=== PATIENT | female | born 1950 | race Caucasian/White ===

== ENCOUNTER 2017-06-26 09:08 | Emergency (ER) | payer OTHER ==
--- NOTE | 2017-06-26 09:46 | CPEKG ---
Heart Rate: 56 RR Interval: 1071 P-R Interval: 152 QRSD Interval: 84 QT Interval: 400 QTC Interval: 387 P Irene: 42 QRS Irene: 49 T Wave Irene: 51 EKG Severity - NORMAL ECG - EKG Impression: SINUS RHYTHM Electronically Signed By: Jeremiah Grewal 26-Jun-2017 15:22:03
[2017-06-26 11:07] VITALS: PULSE 78; RESP 18; TEMP 98.4
--- NOTE | 2017-06-26 11:09 | EDPHY ---
H & P Time Seen by Provider: 06/26/17 09:47 HPI/ROS: HPI Concerned about blood pressure. Very pleasant 66-year-old female by private vehicle with her . They are visiting from [place]. They are here for through the weekend looking at house is. They are planning on moving to the area. The patient has a history of hypertension. She is currently on valsartan HCTZ twice daily. She reports today she noticed that her blood pressure had been high in the low 200 systolic we over 90s. She reports that this has made her anxious. She denies any associated headache, chest pain, shortness of breath. No problems urinating. They are planning on going up the [place] look at some house as but not higher than 7000 ft. ROS: Constitutional: No fever, no chills. No weakness. As above. Eyes: No discharge. No changes in vision. ENT: No sore throat. No nasal congestion or rhinorrhea. Respiratory: No cough. No shortness of breath. Cardiac: No chest pain, no palpitations. Gastrointestinal: No abdominal pain, no vomiting, no diarrhea. Genitourinary: No hematuria. No dysuria or increased frequency with urination. Musculoskeletal: No back pain. No neck pain. No myalgias or arthralgias. Skin: No rashes. Neurological: No headache. No focal weakness or altered sensation. Past medical history: As above. Atrial fibrillation with ablation. She also has a history of lower back pain. She has been on a course of prednisone for a bulging disc. This course of prednisone and tomorrow. Social history: Nonsmoker. No alcohol. Here with her . Physical Exam: General Appearance: Alert, anxious. This patient is responding to questions appropriately and in full sentences. This patient appears well-hydrated and well-nourished. Eyes: Pupils equal and round no pallor or injection. No lid edema, erythema or injection. Respiratory: There are no retractions, lungs are clear to auscultation with good air movement bilaterally. Cardiovascular: Regular rate and rhythm. No murmur. Neurological: Motor sensory function is grossly intact. Cranial nerves are normal. Gait is normal. Skin: Warm and dry, no rashes. Musculoskeletal: Neck is supple and nontender. Extremities are symmetrical. All joints range without pain or impingement. Psychiatric: No agitation. No depression. Database: EKG: EKG time is 9:41 a.m.; EKG shows a narrow complex normal sinus rhythm with a ventricular rate of 56. The WA, QRS, QT intervals are within normal limits. There are no ST-T wave changes indicative of ischemic or injury pattern. No evidence of right heart strain. Interpreted by me. Imaging: Procedures: Emergency department course: IV placed. Vital signs reviewed. Triage blood pressure 211/85. Vital signs otherwise normal. EKG obtained and reviewed by myself. 11:00 a.m., patient re-evaluated. She is currently on the maximum dose of her boss are 10 HCTZ combination antihypertensive. She has been nervous in the emergency department. She does not show any signs of hypertensive emergency. Her EKG is unremarkable. I explained to her and her that she did not choir acute medication for her hypertension in the emergency department at this time. She feels comfortable going home. I explained that she needed to limit her physical activity and to avoid strenuous exertion. I will give her some Ativan to take home and use at night to help her sleep and for anxiety. She will then follow up with her primary care physician when she returns home to [place] on Thursday to evaluate her blood pressure. I discussed return to emergency department precautions regarding hypertensive emergency with both her and her . All of their questions were answered. She was discharged in good condition. Differential Diagnosis: The differential diagnosis on this patient includes but is not limited to uncontrolled hypertension. Hypertensive emergency unlikely. CVA, acute coronary syndrome, acute pulmonary edema, renal failure unlikely. This represents a partial list of diagnoses considered. These considerations are based on history, physical exam, past history, reassessment and diagnostic testing. Smoking Status: Never smoked Constitutional: Initial Vital Signs Temperature (C) 36.6 C 06/26/17 09:14 Heart Rate 62 06/26/17 09:14 Respiratory Rate 17 06/26/17 09:14 Blood Pressure 211/85 H 06/26/17 09:14 O2 Sat (%) 98 06/26/17 09:14 O2 Delivery Mode Room Air Allergies/Adverse Reactions: No Known Allergies Allergy (Unverified 06/26/17 09:12) Home Medications: Medication Instructions Recorded Valsartan-Hctz 160-25 mg Tab 06/26/17 Medical Decision Making - Data Points Laboratory Results: Laboratory Results 06/26/17 11:00 Medications Given: Discontinued Medications Lorazepam (Ativan 1 Mg Prepack#4) 1 btl KASH MOULTON ONE Stop: 06/26/17 11:30 Last Admin: 06/26/17 11:31 Dose: 1 btl Departure - Departure Disposition: Home, Routine, Self-Care Clinical Impression: Hypertension Condition: Good Instructions: Lorazepam (By mouth), Heart Healthy Diet (ED), Hypertension (ED) Additional Instructions: Read and follow provided instructions. Follow-up with your primary care physician when you return home to [place] on Thursday or Thursday of this coming week to evaluate blood pressure and treat accordingly. Take your medication as prescribed. Ativan 1 mg tablets: You can take 1 at night to help you sleep and with anxiety. Do not drive on this medication. Return to the emergency department for shortness of breath and difficulty breathing, chest pain, bad headache with changes in vision, nausea and vomiting , difficulty urinating or other serious concerns. Referrals: VITALIY OROPEZA [Other] - As per Instructions
[2017-06-26 11:26] LABS: ANION GAP 13 mEq/L (8-16); CARBON DIOXIDE 27 mEq/l (22-31); CHLORIDE 100 mEq/L (97-110); CREATININE 0.6 mg/dL (0.6-1.0); GLOMERULAR FILTRATION RATE > 60; GLUCOSE 94 mg/dL (70-100); SODIUM 140 mEq/L (134-144)
[2017-06-26] MEDS ORDERED: LORAZEPAM 1 MG PREPACK#4 BTL TAKEHOME ONE (11:29)
[2017-06-26 11:37] VITALS: BP 200/85; O2SAT 97
== END 2017-06-26 11:35 | disposition home or self-care (01) ==
DX: I10 Essential (primary) hypertension (principal)

== ENCOUNTER → 2018-10-04 | Outpatient (CLI) | payer OTHER, MEDICARE | LOC: FIMAGING 10:07 | PROVIDERS: ATTEND Internal Medicine | DX: M85.851 Other specified disorders of bone density and structure, right thigh (principal) ==

== ENCOUNTER 2018-11-09 07:10 | Inpatient (IN) | payer OTHER, MEDICARE ==
[~2018-11-09 07:10] MED LIST: TRANEXAMIC ACID 1,000 MG in NS 100 ML IV ONE
[2018-11-09] MEDS ORDERED: morphINE PF 0.2 MG in SYRINGE INTRATHECAL 1 SYR IT ONE (07:31)
[2018-11-09] MEDS ORDERED: fentaNYL 50 MCG in SYRINGE INTRATHECAL 1 SYR IT ONE (07:31)
[2018-11-09] MEDS ORDERED: GABAPENTIN 300 MG CAP PO ONE (07:31)
[2018-11-09] MEDS ORDERED: ceFAZolin 2 GM/DEXTROSE 100 ML IV ONE (07:31)
[2018-11-09] MEDS ORDERED: ACETAMINOPHEN 500 MG TAB PO ONE (07:31)
[2018-11-09] MEDS ORDERED: CHLORHEXIDINE GLUC HIBICLENS 118 ML BTL TP ONE (07:41)
[2018-11-09] MEDS ORDERED: THROMBIN (BOVINE) 5,000 UNIT VIAL TP ONE (07:42)
[2018-11-09] MEDS ORDERED: BUPIVACAINE/EPI 0.25% 30 ML SDV ONE (07:42)
[2018-11-09] MEDS ORDERED: BUPIVACAINE 0.25% 30 ML SDV ONE ×2 (07:42→13:40)
[2018-11-09] MEDS ORDERED: CITRATE DEXTROSE SOLN 500 ML BAG ONE (07:42)
[2018-11-09] MEDS ORDERED: BACITRACIN 50,000 UNITS/10 ML SYR IRR ONE (07:43)
[2018-11-09] MEDS ORDERED: LR 1,000 ML IV ONE (08:09)
--- NOTE | 2018-11-09 08:20 | PDANEPAE ---
ANE Past Medical History - Cardiovascular History Hx Hypertension: Yes Hx Arrhythmias: Yes Hx Chest Pain: No Hx Coronary Artery / Peripheral Vascular Disease: No Hx CHF / Valvular Disease: No Hx Palpitations: No Cardiovascular History Comment: AFib ablation 2015 - Pulmonary History Hx COPD: No Hx Asthma/Reactive Airway Disease: Yes Hx Recent Upper Respiratory Infection: No Hx Oxygen in Use at Home: No Hx Sleep Apnea: Yes Sleep Apnea Screening Result - Last Documented: Positive Pulmonary History Comment: nasal congestion. inhalers - Neurologic History Hx Cerebrovascular Accident: No Hx Seizures: No Hx Dementia: No - Endocrine History Hx Diabetes: No Hypothyroid: Yes Obesity: yes, mild - Renal History Hx Renal Disorders: No - Liver History Hx Hepatic Disorders: No - Neurological & Psychiatric Hx Hx Neurological and Psychiatric Disorders: Yes Neurological / Psychiatric History Comment: sciatica pain - Cancer History Hx Cancer: Yes Cancer History Comment: squamous cell - Congenital Disorder History Hx Congenital Disorders: No - GI History Hx Gastrointestinal Disorders: No - Other Health History Other Health History: none - Chronic Pain History 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 bilat foot surgery 2016 ANE Review of Systems Review of Systems: - Exercise capacity METS (RN): 4 METS ANE Patient History - Allergies Allergies/Adverse Reactions: Beta-Blockers (Beta-Adrenergic Bloc Allergy (Verified 10/25/18 16:15) Other-Enter Comments epinephrine Allergy (Verified 10/25/18 16:15) Other-Enter Comments - Home Medications Home Medications: Albuterol [Proventil Inhaler HFA (*)] 1 puffs IH PRN PRN 10/25/18 [Last Taken 1 Week Ago ~11/02/18] Ascorbic Acid [Vitamin C 250 mg (*)] 250 mg PO DAILY 10/25/18 [Last Taken 1 Week Ago ~11/02/18] Bi-Est Compound 0.5 tab SL Q2D 10/25/18 [Last Taken 1 Week Ago ~11/02/18] Cyanocobalamin [Vitamin B12 (*)] 100 mcg PO DAILY 10/25/18 [Last Taken 1 Week Ago ~11/02/18] Fluticasone Nasal [Flonase Nasal Grant (RX)] 2 sprays EACHNARE DAILY 10/25/18 [ Last Taken 11/09/18] Fluticasone/Salmeterol [Airduo Respiclick 55-14 Mcg] 2 inh IH BID 10/25/18 [ Last Taken Unknown] Herbals/Supplements -Info Only 1 ea PO AD 10/25/18 [Last Taken 1 Week Ago ~11/02] Hydralazine HCl 50 mg PO BID 10/25/18 [Last Taken 11/09/18] Multivitamins [Multivitamin (*)] 1 each PO DAILY 10/25/18 [Last Taken 1 Week Ago ~11/02/18] Progesterone (Natural) 100 mg PO Q4D 10/25/18 [Last Taken 11/08/18] Thyroid [[facility] Thyroid 60 MG (*)] 75 mg PO DAILY10 10/25/18 [Last Taken ] Valsartan [Diovan (*)] 160 mg PO HS 10/25/18 [Last Taken Unknown] Valsartan/Hydrochlorothiazide [Diovan Hct 160-25 mg Tablet] 1 each PO DAILY 03/07 [Last Taken 11/08/18] amLODIPine BESYLATE [Norvasc 5 mg (*)] 5 mg PO DAILY 10/25/18 [Last Taken ] valACYclovir [Valtrex (*)] 500 mg PO Q3D 10/25/18 [Last Taken Unknown] - NPO status NPO Since - Liquids (Date): 11/09/18 NPO Since - Liquids (Time): 05:00 NPO Since - Solids (Date): 11/08/18 NPO Since - Solids (Time): 19:00 - Smoking Hx Smoking Status: Former smoker - Family Anes Hx Family Hx Anesthesia Complications: none ANE Labs/Vital Signs - Vital Signs Blood Pressure: 140/84 Heart Rate: 70 Respiratory Rate: 12 O2 Sat (%): 94 Height: 170.18 cm Weight: 88.451 kg ANE Physical Exam - Airway Neck exam: FROM Mallampati Score: Class 2 Mouth exam: normal dental/mouth exam - Pulmonary Pulmonary: clear to auscultation - Cardiovascular Cardiovascular: regular rate and rhythym - ASA Status ASA Status: II ANE Anesthesia Plan Anesthesia Plan: general endotracheal anesthesia Lines/Monitors: arterial line
--- NOTE | 2018-11-09 08:39 | PDHPUP ---
History & Physical Update H&P update statement: This history and physical update is based on an assessment of the patient which was completed after admission or registration (within 24 hours), but prior to the surgery/procedure. H&P update: H&P reviewed & patient examined, no change in patient's condition since H&P completed
[2018-11-09] MEDS ORDERED: MIDAZOLAM 2 MG/2 ML VIAL IVP ONE (09:05)
[2018-11-09] MEDS ORDERED: fentaNYL 250 MCG/5 ML INJ ONE (09:16)
[2018-11-09] MEDS ORDERED: PROPOFOL 200 MG/20 ML VIAL ONE ×2 (09:16→13:46)
[2018-11-09] MEDS ORDERED: PROPOFOL/EMULSION 500 MG/50 ML BOTTLE IV ONE ×2 (09:17)
[2018-11-09] MEDS ORDERED: ROCURONIUM 50 MG/5 ML VIAL ONE (09:18)
[2018-11-09] MEDS ORDERED: PETROLAT,WHT/MIN OIL/SOD CHL 3.5 GM OPHT.OINT ONE (09:19)
[2018-11-09] MEDS ORDERED: DEXMEDETOMIDINE HCL 400 MCG in NS 100 ML IV SCH (09:30)
[2018-11-09] MEDS ORDERED: DEXAMETHASONE 4 MG/ML VIAL ONE ×3 (10:04)
[2018-11-09] MEDS ORDERED: GLYCOPYRROLATE 0.2 MG/1 ML VIAL ONE (10:04)
[2018-11-09] MEDS ORDERED: ePHEDrine SULFATE 25 MG/5 ML SYR ONE (10:05)
[2018-11-09] MEDS ORDERED: PHENYLEPHRINE 10 MG/ML SDV ONE (10:49)
[2018-11-09] MEDS ORDERED: HYDROmorphONE/DILAUDID 2 MG/ML INJ ONE (10:54)
[2018-11-09] MEDS ORDERED: ceFAZolin 1 GM VIAL ONE ×2 (13:40)
[2018-11-09] MEDS ORDERED: ONDANSETRON 4 MG/2 ML VIAL ONE (13:56)
[2018-11-09] MEDS ORDERED: NALOXONE HCL 0.4 MG/ML INJ IVP PRN ×2 (14:03→14:23)
[2018-11-09] MEDS ORDERED: LR 500 ML IV PRN (14:03)
[2018-11-09] MEDS ORDERED: MEPERIDINE 25 MG/0.5 ML AMP IVP PRN (14:03)
[2018-11-09] MEDS ORDERED: fentaNYL 100 MCG/2 ML INJ IVP PRN (14:03)
[2018-11-09] MEDS ORDERED: PROMETHAZINE HCL 25 MG/ML INJ IVP PRN (14:03)
[2018-11-09] MEDS ORDERED: METOCLOPRAMIDE 10 MG/2 ML VIAL IVP PRN (14:03)
[2018-11-09] MEDS ORDERED: HYDROmorphONE/DILAUDID 1 MG/ML INJ IVP PRN (14:03)
[2018-11-09] MEDS ORDERED: ONDANSETRON 4 MG/2 ML VIAL IVP PRN ×2 (14:03→14:23)
[2018-11-09] MEDS ORDERED: ALBUTEROL 3 ML DEYVIAL IH PRN (14:03)
[2018-11-09] MEDS ORDERED: ALBUTEROL 60 PUFFS/8 GM MDI IH PRN ×2 (14:21→18:00)
[2018-11-09] MEDS ORDERED: BISACODYL 10 MG SUPP PR PRN (14:23)
[2018-11-09] MEDS ORDERED: MAGNESIUM HYDROXIDE 30 ML UDCUP PO PRN (14:23)
[2018-11-09] MEDS ORDERED: ONDANSETRON DISINTEGRATING 4 MG TAB PO PRN (14:23)
[2018-11-09] MEDS ORDERED: diphenhydrAMINE 25 MG CAP PO PRN (14:23)
[2018-11-09] MEDS ORDERED: LACTULOSE 20 GM/30 ML UDCUP PO PRN (14:23)
--- NOTE | 2018-11-09 14:28 | SOAPPROG ---
SOAP Progress Note Assessment/Plan: Assessment: 68 yo F sp L3-5 TLIF Plan: stable PT/OT LSO brace when out of bed lovenox starts POD #1 please call with neuro changes 11/09/18 14:27 Subjective: + back pain, no leg pain Objective: Vital Signs Temp Pulse Resp BP Pulse Ox 37.1 C 70 12 140/84 H 94 11/09/18 07:38 11/09/18 09:08 11/09/18 09:08 11/09/18 09:08 11/09/18 09:08 somnolent PERRL, EOMI, no facial droop DAVONTE x 4 + light touch ICD10 Worksheet Patient Problems: Problems Problem Status Onset Fusion of spine of lumbar region Acute - ICD10 Problem Qualifiers (1) Fusion of spine of lumbar region
[2018-11-09] MEDS ORDERED: PROGESTERONE 100 MG PO SCH (14:30)
--- NOTE | 2018-11-09 15:03 | GOP ---
[f rep st] OPERATIVE REPORT DATE OF OPERATION: 11/09/2018 SURGEON: Moy Samuel MD NEUROSURGEON: Moy Samuel MD. CREW BOAT OPERATOR: Adebayo Kc PA-C. ANESTHESIA: General endotracheal. PREOPERATIVE DIAGNOSIS: Severe multilevel lumbar degenerative joint disease with disk space collapse and spinal stenosis and severe lateral recess impingement. Intractable low back pain and left great er than right lower extremity radicular and neurogenic claudication symptoms. Failed conservative ca re. POSTOPERATIVE DIAGNOSIS: Severe multilevel lumbar degenerative joint disease with disk space collaps e and spinal stenosis and severe lateral recess impingement. Intractable low back pain and left grea ter than right lower extremity radicular and neurogenic claudication symptoms. Failed conservative c are. synovial cyst extending from L3-L5. PROCEDURE PERFORMED: Back left-sided far lateral transpedicular decompression at the L3-4 and L4-5 l evels with removal of the synovial cyst at the L3 at the that extended from L3 through L5. L3 throug h 5 posterior segmental (pedicle screw and axial device) fixation and posterolateral fusion with loca l autograft, bone morphogenic protein, and morselized allograft. L3-4 and L4-5 posterior/transforamin al lumbar interbody fusions with 2 structural PEEK interbody spacers, local autograft and bone morpho genic protein at each level. Use of intraoperative microscopy fluoroscopy and computer volumetric st ereotactic navigation with intraoperative neurophysiologic testing. Injection of intrathecal narcoti c analgesics and subcutaneous and intramuscular local anesthesia for postoperative pain control. FINDINGS: ESTIMATED BLOOD LOSS: 200 cc. INDICATIONS: The patient is a 68-year-old woman with intractable low back pain and left greater than right lower extremity radicular and neurogenic claudication symptoms, secondary to multilevel severe degenerative joint disease, disk space collapse, and spinal stenosis and lateral recess impingement, and a synovial cyst. Patient has failed conservative care and presents now for surgical decompressi on and stabilization, DESCRIPTION OF PROCEDURE: After informed consent was obtained, the patient was taken to the operatin g room and placed in the prone position on the Asher table. The thoracolumbosacral areas were prep ped and draped in sterile fashion, and after fluoroscopic localization of correct levels, the subcuta neous and intramuscular tissues were infiltrated with local anesthesia. A midline linear incision was then created from approximately L3 to L5. This was carried down to the fascial layer, which was then incised using monopolar electrocautery and carried in the subperiostea l plane along the spinous processes and lamina bilaterally. Intraoperative fluoroscopy was again uti lized to verify the correct levels. Following this, dissection was carried out over the facet joints . The microscope was then brought in and the left-sided far lateral transpedicular decompressions we re then performed at the L3-4 and L4-5 levels with complete unroofing of the facet joints and neural foramina at L3-L4 and L5. Bilateral decompressions were performed by angling the instruments and nicole roscope across the midline. Complete decompressions were ensured by inspecting rostrally, caudally, medially, and laterally at both levels. Following adequate decompression, the [employer] Neuronavigational System was brought in and using compu ter volumetric stereotactic navigation, pedicle screws were placed bilaterally at L3 and L5 and on th e left at L4. Each individual screw was tested neurophysiologically with monopolar electrostimulatio n and interpretation of the potentials by the surgeon. The right L5 screw stimulated at 17 mA and on x-ray it appeared to be slightly long and this was removed, but then, the hole was palpated and ther e was no defect anteriorly and the screws were replaced. I felt that it was in the best interest of the patient to leave the screw in place based on the neuromonitoring, x-rays, and intraoperative find ings. Serial distraction was then created first across L3-4, then across L4-5 during which time complete di skectomies were performed with preparation of the endplates and placement of 2 structural PEEK interb qing spacers, with local autograft and bone morphogenic protein at each level for L3-4 and L4-5 social media analyst ior/transforaminal lumbar interbody fusions. The screw and valerie system were then placed in a slight a mount of compression in order to facilitate bony union and to minimize the potential for posterior gr aft migration across both levels. Axial devices were then placed due to the fact that the bones were slightly soft and I felt that given her increased weight, she was at high risk for hardware failure and nonunion. Following this, 200 mcg of Duramorph, along with 50 mcg of fentanyl were injected intrathecally for p ostoperative pain control. The remaining laminae and facet joints were extensively drilled out and t he remaining local autograft, along with bone morphogenic protein and morselized allograft was placed out laterally for posterolateral fusion from L3 to L5. The subcutaneous and intramuscular tissues w ere re-infiltrated with local anesthesia. A drain was placed and the wound was closed in layered fas hion using interrupted Vicryl sutures, followed by Steri-Strips on the skin. COMPLICATIONS: None. DISPOSITION: The patient is currently in the process of being repositioned for extubation. /[id number]/MODL
--- NOTE | 2018-11-09 15:26 | PDMN ---
Medical Necessity Medical necessity: [facility] [place] S820 Lumbar Fusion, 2 days: 68 yo s/p L3/4, L4/5 TLIF Lum Avilez posterior fusion w/ efra, CPT 47472, IP only
[2018-11-09] MEDS: POLYETHYLENE GLYCOL 3350 17 GM PKT PO SCH ×2 (16:16→22:54)
[2018-11-09] MEDS: NS 1,000 ML IV SCH (16:16)
[2018-11-09] MEDS: ceFAZolin 2 GM/DEXTROSE 100 ML IV SCH (17:31)
[2018-11-09] MEDS: METHOCARBAMOL 750 MG TAB PO PRN (19:00)
[2018-11-09] MEDS: oxyCODONE IR 5 MG TAB PO PRN (19:01)
[2018-11-09] MEDS: Mometasone/Formoterol [Dulera 100 Mcg/5 Mcg Inhaler] IH SCH (19:52)
[2018-11-09] MEDS: SENNOSIDES/DOCUSATE SODIUM TAB PO SCH (20:01)
[2018-11-09] MEDS: FAMOTIDINE 20 MG TAB PO SCH (20:03)
[2018-11-09] MEDS: VALSARTAN 160 MG TAB PO SCH (20:30)
[2018-11-09] MEDS ORDERED: SALMETEROL IH SCH (21:00)
[2018-11-09] MEDS ORDERED: FLUTICASONE IH SCH (21:00)
[2018-11-09] MEDS ORDERED: ceFAZolin 2 GM/DEXTROSE 100 ML IV SCH (22:00)
[2018-11-10] MEDS: ceFAZolin 2 GM/DEXTROSE 100 ML IV SCH (02:10)
[2018-11-10] MEDS: NS 1,000 ML IV SCH (03:12)
[2018-11-10] MEDS: METHOCARBAMOL 750 MG TAB PO PRN ×4 (05:07→22:55)
[2018-11-10] MEDS: oxyCODONE IR 5 MG TAB PO PRN ×4 (05:08→20:04)
[2018-11-10 05:21] LABS: PLATELET COUNT 145 10^3/uL (150-400)
[2018-11-10] MEDS: VALSARTAN/HCTZ 80-12.5MG TAB PO SCH (07:41)
[2018-11-10] MEDS: FAMOTIDINE 20 MG TAB PO SCH ×2 (07:42→21:44)
[2018-11-10] MEDS: amLODIPine BESYLATE 5 MG TAB PO SCH (07:42)
[2018-11-10] MEDS: SENNOSIDES/DOCUSATE SODIUM TAB PO SCH ×2 (07:42→21:38)
[2018-11-10] MEDS: ENOXAPARIN 40 MG/0.4 ML SYR SC SCH (07:43)
[2018-11-10] MEDS: POLYETHYLENE GLYCOL 3350 17 GM PKT PO SCH ×3 (07:43→21:36)
--- NOTE | 2018-11-10 07:55 | SOAPPROG ---
SOAP Progress Note Assessment/Plan: Assessment: 68 yo F POD #1 L3-5 TLIF Plan: stable gamino out PT/OT LSO brace when out of bed lovenox/scd/joseph for dvt prophylaxis x-rays today please call with neuro changes patient seen by Dr Saenz 11/09/18 14:27 11/10/18 07:54 Subjective: + back pain, no leg pain, no weakness. Objective: Vital Signs Temp Pulse Resp BP Pulse Ox 36.6 C 63 18 129/63 H 95 11/10/18 06:54 11/10/18 06:54 11/10/18 06:54 11/10/18 06:54 11/10/18 06:54 Laboratory Results 11/10/18 04:54 11/10/18 04:54 11/09/18 11/10/18 11/11/18 05:59 05:59 05:59 Intake Total 3140 1200 Output Total 2305 70 Balance 835 1130 AAOx4, +FC PERRL, EOMI, no facial droop 5/5 + light touch C/D/I ICD10 Worksheet Patient Problems: Problems Problem Status Onset Fusion of spine of lumbar region Acute - ICD10 Problem Qualifiers (1) Fusion of spine of lumbar region
[2018-11-10] MEDS ORDERED: FLUTICASONE NASAL 120 SPRAYS/16 GM MDI EACHNARE SCH (09:00)
[2018-11-10] MEDS: Mometasone/Formoterol [Dulera 100 Mcg/5 Mcg Inhaler] IH SCH ×2 (09:22→20:49)
[2018-11-10] MEDS ORDERED: THYROID 60 MG TAB PO SCH (10:00)
--- NOTE | 2018-11-10 10:49 | POSTANESTH ---
Post Anesthetic Evaluation Cardiovascular Status: Normal, Stable Respiratory Status: Normal, Stable Level of Consciousness/Mental Status: Can Participate in Eval Pain Control: Adequate, Prn Tx Ordered Nausea/Vomiting Control: Adequate, Prn Tx Ordered Complications Possibly Related to Anesthesia: None Noted
[2018-11-10] MEDS: THYROID 60 MG TAB PO SCH (10:50)
--- NOTE | 2018-11-10 13:39 | ASMTCMCOM ---
CM Note CM Note Notes: Pt had planned L3-5 TLIF, resides with spouse. PT rec home care. Pt was pre-arranged with [facility] by MD office. Pt wants home care and is agreeable to [facility]. No home care orders needed at d/c since [facility] has protocol with MD. D/c plan of care: Home with [facility] Date Signed: 11/10/2018 01:38 PM Electronically Signed By:ARINA Ghosh
[2018-11-10] MEDS: FLUTICASONE NASAL 120 SPRAYS/16 GM MDI EACHNARE SCH (21:35)
[2018-11-10] MEDS: VALSARTAN 160 MG TAB PO SCH (21:38)
[2018-11-11] MEDS: oxyCODONE IR 5 MG TAB PO PRN ×6 (01:58→21:10)
[2018-11-11] MEDS: THYROID 60 MG TAB PO SCH (05:13)
[2018-11-11] MEDS: METHOCARBAMOL 750 MG TAB PO PRN ×3 (05:14→17:16)
--- NOTE | 2018-11-11 07:54 | NEUSURGPN ---
Assessment/Plan: ssessment/Plan: Assessment: 68 yo F POD #2 L3-5 TLIF Plan: stable- pain control continues to be an issue. Still needing IV morphine. Will try and increase oxy to Q3 to see if this helps Continue drain PT/OT LSO brace when out of bed lovenox/scd/joseph for dvt prophylaxis x-rays show good hardware placement please call with neuro changes Dispo: Patient worried about 's ability to take care of her at home as he is also very ill at this time. patient discussed with Dr. Saenz S: Patient in a lot of back pain still. Needing IV Morphine. Voiding, drinking, eating well. Has some left hip pain but overall left leg feels better. O: NAD, VSS CN II-XII grossly intact Alert, awake BLE 11/21= SILT Incision c/d/i-dressed JAN X1- serosang in bulb Catheter Insertion Date: 11/09/18 - Physician Discussed Patient with DrBrigid: Jimmie Neurosurgery Physical Exam - Vitals, I&O, Labs I and O 11/10/18 11/11/18 11/12/18 05:59 05:59 05:59 Intake Total 3140 2110 Output Total 2305 2775 Balance 835 -665 Weight 88.451 kg Intake: Oral (ml) 1440 910 IV Intake (ml) 1700 IV Infused (ml) 1200 Ns 1,000 ml @ 100 mls/hr 1200 IV CONT JUSTINO Rx#: [id number] Output: Urine (ml) 1500 2500 Catheter 1500 Toilet 2500 Estimated Blood Loss (ml) 500 JAN Drain Output (ml) 305 275 #1 Back Asher Spring 305 275 Other: Intake Quantity Yes Sufficient Number of Voids Catheter 1 Toilet 1 Vital Signs Temp Pulse Resp BP Pulse Ox 37.1 C 75 16 108/57 L 91 L 11/11/18 00:00 11/11/18 00:00 11/11/18 00:00 11/11/18 00:00 11/11/18 00:00 Laboratory Results 11/10/18 04:54 11/10/18 04:54 ICD10 Worksheet Patient Problems: Problems Problem Status Onset Fusion of spine of lumbar region Acute
[2018-11-11] MEDS: FAMOTIDINE 20 MG TAB PO SCH ×2 (08:17→21:10)
[2018-11-11] MEDS: amLODIPine BESYLATE 5 MG TAB PO SCH (08:18)
[2018-11-11] MEDS: ENOXAPARIN 40 MG/0.4 ML SYR SC SCH (08:20)
[2018-11-11] MEDS: Mometasone/Formoterol [Dulera 100 Mcg/5 Mcg Inhaler] IH SCH ×2 (08:21→21:14)
[2018-11-11] MEDS: SENNOSIDES/DOCUSATE SODIUM TAB PO SCH ×2 (08:21→21:25)
[2018-11-11] MEDS: POLYETHYLENE GLYCOL 3350 17 GM PKT PO SCH ×3 (08:21→23:44)
[2018-11-11] MEDS: VALSARTAN/HCTZ 80-12.5MG TAB PO SCH (08:21)
[2018-11-11] MEDS ORDERED: [UNRECOGNIZED DRUG - OTHER] SL SCH (09:00)
[2018-11-11] MEDS: ACETAMINOPHEN 500 MG TAB PO SCH ×2 (12:07→17:16)
--- NOTE | 2018-11-11 17:10 | ASMTCMCOM ---
CM Note CM Note Notes: Today PT/OT rec SNF. Pt is open to SNF she says especially because her is medically compromised now and will not be able to assist her at home. Pt requests a referral to [facility], they review and can accept pt. D/c plan of care: Home with [facility] vs. [facility] Date Signed: 11/11/2018 05:09 PM Electronically Signed By:ARINA Ghosh
[2018-11-11] MEDS: FLUTICASONE NASAL 120 SPRAYS/16 GM MDI EACHNARE SCH (21:14)
[2018-11-11] MEDS: VALSARTAN 160 MG TAB PO SCH (21:24)
[2018-11-12] MEDS: ACETAMINOPHEN 500 MG TAB PO SCH ×2 (03:37→11:07)
[2018-11-12] MEDS: METHOCARBAMOL 750 MG TAB PO PRN ×2 (03:38→11:09)
[2018-11-12] MEDS: oxyCODONE IR 5 MG TAB PO PRN ×3 (03:38→11:06)
[2018-11-12] MEDS: THYROID 60 MG TAB PO SCH (06:03)
[2018-11-12 07:55] VITALS: BP 125/73
[2018-11-12] MEDS ORDERED: valACYclovir 500 MG TAB PO SCH (08:00)
[2018-11-12] MEDS: ENOXAPARIN 40 MG/0.4 ML SYR SC SCH (08:13)
[2018-11-12] MEDS: FAMOTIDINE 20 MG TAB PO SCH (08:13)
[2018-11-12] MEDS: SENNOSIDES/DOCUSATE SODIUM TAB PO SCH (08:16)
[2018-11-12] MEDS: POLYETHYLENE GLYCOL 3350 17 GM PKT PO SCH (08:16)
[2018-11-12] MEDS: amLODIPine BESYLATE 5 MG TAB PO SCH (08:23)
[2018-11-12] MEDS: VALSARTAN/HCTZ 80-12.5MG TAB PO SCH (08:24)
[2018-11-12] MEDS: Mometasone/Formoterol [Dulera 100 Mcg/5 Mcg Inhaler] IH SCH (08:25)
--- NOTE | 2018-11-12 09:19 | SOAPPROG ---
SOAP Progress Note Assessment/Plan: Assessment: POD #3 sp L3-5 TLIF Doing well OK for rehab today Plan: Continue LSO DC Jan today prior to going to rehab Follow up with Dr. Saenz in 7-14 days. OK for rehab today. Discussed plan with Dr. Saenz 11/12/18 09:19 11/12/18 09:19 Subjective: Sitting in bedside chair. Pain well controlled. States her sciatica is "gone." Doing well overall and eager to go to rehab today. Objective: Vital Signs Temp Pulse Resp BP Pulse Ox 36.7 C 70 16 125/73 H 92 11/12/18 07:52 11/12/18 07:52 11/12/18 07:52 11/12/18 07:52 11/12/18 07:52 Laboratory Results 11/10/18 04:54 11/10/18 04:54 11/11/18 11/12/18 11/13/18 05:59 05:59 05:59 Intake Total 2110 1750 300 Output Total 2775 360 30 Balance -665 1390 270 Neuro: SOSA, sens +LT ambulatory JAN: 30 ml ICD10 Worksheet Patient Problems: Problems Problem Status Onset Fusion of spine of lumbar region Acute
--- NOTE | 2018-11-12 09:25 | PDIAF ---
- Diagnosis Diagnosis: Lumbar fusion L3-5 Code Status: Full Code - Medication Management Discharge Medications: electronically signed and located in the Home Medication List. - Orders Services needed: Registered Nurse, Physical Therapy, Occupational Therapy Diet Recommendation: no restrictions on diet Diet Texture: Regular Texture Diet Marv Stockings Discontinue Date: 11/19/18 Wound Care Instructions: keep dressing/incision dry. do not soak or submerge. OK to shower POD #4. call Dr. Samuel's office with any redness pain, drainage. Activity/Weight Bearing Restrictions: no bending, twisting or lifting over 10 lbs x 6 weeks. Equipment: LSO brace Additional Instructions: wear LSO when out of bed keep dressing/incision dry call [phone] with questions/concerns and to confirm post op appt. - Follow Up Care Current Providers and Referrals: Daisy Meléndez MD [Primary Care Provider] -
--- NOTE | 2018-11-12 13:53 | ASMTLACE ---
LACE Length of stay for Answers: 4-6 days current admission Acuity / Level of Answers: Yes Care: Did the patient have an inpatient admission? Comorbidities - select Answers: Opioid dependence all that apply / Chronic pain Other Notes: HTN; AFib # of Emergency department Answers: 0 visits in the last 6 months Score: 12 Date Signed: 11/12/2018 01:52 PM Electronically Signed By:ARINA Ghosh
--- NOTE | 2018-11-12 13:57 | ASMTCMCOM ---
CM Note CM Note Notes: Pt medically stable for d/c to [facility]. Orders sent in [employer]. Deya with [facility] scheduled wc transport. NATHAN Golden to call report. Date Signed: 11/12/2018 01:56 PM Electronically Signed By:ARINA Ghosh
--- NOTE | 2018-11-12 13:58 | ASDISCHSUM ---
Discharge Information Plan Status:SNF Medically Cleared to Leave: Discharge Date:11/12/2018 11:44 AM CM D/C Disposition: ADT D/C Disposition:Other Rehab, Not [facility] Projected Discharge Date:11/12/2018 11:00 AM Transportation at D/C: Discharge Delay Reason: Follow-Up Date:11/12/2018 11:00 AM Discharge Slot: Final Diagnosis: Placement Information Referral Type:*[facility]/SNF Referral ID:[id number] Provider Name:Milka ruiz [place] Address 1:[address] Address 2: City:[place] Selection Factors: State:[place] Patient Contact Information Contact Name:ZACHKENNA Relationship: Address:[facility] [place] Work Phone: [facility] Company:[facility] Phone: State/Zip Code:[place] [address] Email: Financial Information Financial Class:Medicare Primary Plan Desc:MEDICARE INPATIENT Primary Plan Number:[id number] Secondary Plan Desc:[employer]/MDR SUPPLEMENT Secondary Plan Number:[id number] Assessment Information LACE LACE Length of stay for Answers: 4-6 days current admission Acuity / Level of Answers: Yes Care: Did the patient have an inpatient admission? Comorbidities - select Answers: Opioid dependence all that apply / Chronic pain Other Notes: HTN; AFib # of Emergency department Answers: 0 visits in the last 6 months Score: 12 Date Signed: 11/12/2018 01:52 PM Electronically Signed By:ARINA Ghosh [facility] CM Progress Note CM Note CM Note Notes: Pt had planned L3-5 TLIF, resides with spouse. PT rec home care. Pt was pre-arranged with [facility] by MD office. Pt wants home care and is agreeable to [facility]. No home care orders needed at d/c since [facility] has protocol with . D/c plan of care: Home with [facility] Date Signed: 11/10/2018 01:38 PM Electronically Signed By:ARINA Ghosh [facility] CM Progress Note CM Note CM Note Notes: Today PT/OT rec SNF. Pt is open to SNF she says especially because her is medically compromised now and will not be able to assist her at home. Pt requests a referral to [facility] [place], they review and can accept pt. D/c plan of care: Home with [facility] vs. [facility] Date Signed: 11/11/2018 05:09 PM Electronically Signed By:ARINA Ghosh [facility] CM Progress Note CM Note CM Note Notes: Pt medically stable for d/c to [facility] SNF. Orders sent in [employer]. Deya with [facility] scheduled wc transport. NATHAN Golden to call report. Date Signed: 11/12/2018 01:56 PM Electronically Signed By:ARINA Ghosh Intervention Information
== END 2018-11-12 11:44 | DRG 455 ==
LOC: F3N 07:10
PROVIDERS: ADMIT Neurological Surgery; ATTEND Neurological Surgery
PROC: 0ST20ZZ Resection of Lumbar Vertebral Disc, Open Approach (ICD-10-PCS; principal; 2018-11-09 08:45)
PROC: 00NY0ZZ Release Lumbar Spinal Cord, Open Approach (ICD-10-PCS; principal; 2018-11-09 08:45)
PROC: 0SG10AJ Fusion of 2 or more Lumbar Vertebral Joints with Interbody Fusion Device, Posterior Approach, Anterior Column, Open Approach (ICD-10-PCS; principal; 2018-11-09 08:45)
PROC: 8E0WXBZ Computer Assisted Procedure of Trunk Region (ICD-10-PCS; principal; 2018-11-09 08:45)
PROC: 0SG1071 Fusion of 2 or more Lumbar Vertebral Joints with Autologous Tissue Substitute, Posterior Approach, Posterior Column, Open Approach (ICD-10-PCS; principal; 2018-11-09 08:45)
PROC: 4A1004G Monitoring of Central Nervous Electrical Activity, Intraoperative, Open Approach (ICD-10-PCS; principal; 2018-11-09 08:45)
DX: M51.36 Other intervertebral disc degeneration, lumbar region (principal); M48.062 Spinal stenosis, lumbar region with neurogenic claudication; I10 Essential (primary) hypertension; I48.91 Unspecified atrial fibrillation; G47.30 Sleep apnea, unspecified; Z87.891 Personal history of nicotine dependence
CPT/HCPCS: 97116-GP; 97161-GP; 97166-GO; 97530-GP; 97535-GO; C1713; C1762; J0690; J1100; J1170; J1650; J2250; J2270; J2274; J2370; J2405; J2704; J3010